=== PATIENT | female | born 1930 | race Two or more races ===

== ENCOUNTER 2018-08-22 09:20 | Inpatient (IN) | payer OTHER ==
[2018-08-22] MEDS ORDERED: ONDANSETRON 4 MG INJ IV (11:30)
[2018-08-22] MEDS ORDERED: NACL 0.9% 3 ML SYG IV (11:30)
[2018-08-22 11:44] LABS: HEMATOCRIT 36.9 % (37.0-47.0); HEMOGLOBIN 12.4 g/dl (12.0-16.0); MEAN CORPUSCULAR HGB CONC 33.6 g/dl (32.0-37.0); MEAN CORPUSCULAR VOLUME 86.2 fl (82.0-101.0); MEAN PLATELET VOLUME 9.7 fl (7.4-10.4); PLATELET COUNT 210 10^3/UL (140-415); RED BLOOD COUNT 4.28 10^6/ul (4.20-5.40); RED CELL DISTRIBUTION WIDTH 13.1 % (11.5-14.5)
[2018-08-22 11:44] LABS: WHITE BLOOD COUNT 8.3 10^3/ul (4.8-10.8)
[2018-08-22 11:45] LABS: ADD MAN DIFF? YES
[2018-08-22] MEDS: AZITHROMYCIN 250 MG TAB PO (11:49)
[2018-08-22] MEDS: CEFTRIAXONE 1 GM/50 ML (PMX) 50 ML IVPB (11:49)
[2018-08-22 11:59] LABS: LACTIC ACID 1.2 mmol/L (0.5-2.0)
[2018-08-22] MEDS: INSULIN ASPART [NOVOLOG] 3 ML PEN SC ×3 (12:03→20:48)
[2018-08-22 12:08] LABS: ALANINE AMINOTRANSFERASE 30 IU/L (13-69); ALBUMIN 3.4 g/dl (3.3-4.9); ALBUMIN/GLOBULIN RATIO 1.06; ALKALINE PHOSPHATASE 94 IU/L (42-121); ANION GAP 13 (5-13); ASPARTATE AMINO TRANSFERASE 31 IU/L (15-46); BILIRUBIN,INDIRECT 0.1 mg/dl (0-1.1); BILIRUBIN,TOTAL 0.1 mg/dl (0.2-1.3); BLOOD UREA NITROGEN 8 mg/dl (7-20); CALCIUM 8.6 mg/dl (8.4-10.2); CARBON DIOXIDE 25 mmol/L (21-31); CHLORIDE 103 mmol/L (97-110); CREATININE 0.56 mg/dl (0.44-1.00); GLUCOSE 165 mg/dl (70-220); MAGNESIUM 1.5 mg/dl (1.7-2.5); PHOSPHORUS 3.1 mg/dl (2.5-4.9); POTASSIUM 3.4 mmol/L (3.5-5.1); SODIUM 141 mmol/L (135-144); TOTAL PROTEIN 6.6 g/dl (6.1-8.1)
[2018-08-22] MEDS: MECLIZINE 25 MG TAB PO ×2 (12:44→20:28)
[2018-08-22] MEDS: GABAPENTIN 300 MG CAP PO ×2 (12:44→20:28)
[2018-08-22] MEDS: POTASSIUM CHLORIDE 20 MEQ POWDER FOR ORAL SOLN PO (15:32)
[2018-08-22] MEDS: MAGNESIUM SULFATE 2 GM/50 ML 50 ML IVPB (15:32)
[2018-08-22] MEDS: ATORVASTATIN 10 MG TAB PO (20:28)
[2018-08-22] MEDS ORDERED: NON-FORMULARY/PATIENT OWN MED (Simvastatin* 5 MG) PO (21:00)
[2018-08-23] MEDS: ACCU-CHEK XX (02:00)
[2018-08-23 05:56] LABS: ADD MAN DIFF? NO
[2018-08-23 06:08] LABS: BASOPHILS % 0.3 % (0.0-2.0); EOSINOPHILS # 0.4 10^3/ul (0.0-0.5); HEMATOCRIT 38.1 % (37.0-47.0); HEMOGLOBIN 12.4 g/dl (12.0-16.0); LYMPHOCYTES # 1.9 10^3/ul (0.8-2.9); LYMPHOCYTES % 27.3 % (15.0-51.0); MEAN CORPUSCULAR HEMOGLOBIN 28.8 pg (29.0-33.0); MEAN CORPUSCULAR HGB CONC 32.5 g/dl (32.0-37.0); MEAN CORPUSCULAR VOLUME 88.6 fl (82.0-101.0); MEAN PLATELET VOLUME 9.6 fl (7.4-10.4); MONOCYTE # 0.9 10^3/ul (0.3-0.9); MONOCYTES % 13.1 % (0.0-11.0); NEUTROPHIL # 3.8 10^3/ul (1.6-7.5); NEUTROPHILS % 52.9 % (39.0-77.0); PLATELET COUNT 216 10^3/UL (140-415); RED CELL DISTRIBUTION WIDTH 13.4 % (11.5-14.5)
[2018-08-23 06:08] LABS: WHITE BLOOD COUNT 7.1 10^3/ul (4.8-10.8)
[2018-08-23 06:42] LABS: ALANINE AMINOTRANSFERASE 21 IU/L (13-69); ALBUMIN 3.3 g/dl (3.3-4.9); ALBUMIN/GLOBULIN RATIO 0.97; ALKALINE PHOSPHATASE 94 IU/L (42-121); ANION GAP 10 (5-13); ASPARTATE AMINO TRANSFERASE 31 IU/L (15-46); BILIRUBIN,INDIRECT 0.1 mg/dl (0-1.1); BILIRUBIN,TOTAL 0.1 mg/dl (0.2-1.3); BLOOD UREA NITROGEN 12 mg/dl (7-20); CALCIUM 8.5 mg/dl (8.4-10.2); CARBON DIOXIDE 28 mmol/L (21-31); CHLORIDE 103 mmol/L (97-110); CREATININE 0.73 mg/dl (0.44-1.00); GLUCOSE 192 mg/dl (70-220); MAGNESIUM 2.4 mg/dl (1.7-2.5); PHOSPHORUS 3.5 mg/dl (2.5-4.9); POTASSIUM 4.3 mmol/L (3.5-5.1); SODIUM 141 mmol/L (135-144); TOTAL PROTEIN 6.7 g/dl (6.1-8.1)
[2018-08-23 06:52] LABS: HEMOGLOBIN A1C 10.1 % (0-5.9)
[2018-08-23] MEDS: INSULIN ASPART [NOVOLOG] 3 ML PEN SC ×2 (08:24→11:15)
[2018-08-23] MEDS: AZITHROMYCIN 250 MG TAB PO (08:25)
[2018-08-23] MEDS: GABAPENTIN 300 MG CAP PO ×2 (08:25→13:00)
[2018-08-23] MEDS: MECLIZINE 25 MG TAB PO ×2 (08:25→13:00)
[2018-08-23] MEDS: ACETAMINOPHEN 325 MG TAB PO (08:28)
[2018-08-23] MEDS: CEFTRIAXONE 1 GM/50 ML (PMX) 50 ML IVPB (11:12)
== END 2018-08-23 14:15 | disposition home or self-care (01) | DRG 195 ==
LOC: TEL 09:20
DX: J18.9 Pneumonia, unspecified organism (principal); I10 Essential (primary) hypertension; E11.9 Type 2 diabetes mellitus without complications; Z79.4 Long term (current) use of insulin
CPT/HCPCS: 71046; 80053; 82962; 83036; 83605; 83735; 84100; 84443; 85025